=== PATIENT | male | born 1945 | race Caucasian/White ===

== ENCOUNTER → 2017-02-28 12:18 | Outpatient (CLI) | payer MEDICARE, OTHER ==
[2012-01-25 10:00] VITALS: BMI 29.2
== END | disposition home or self-care (01) ==
LOC: D.US 12:18
DX: I65.23 Occlusion and stenosis of bilateral carotid arteries (principal)

== ENCOUNTER → 2017-04-06 08:08 | Outpatient (CLI) | payer MEDICARE, OTHER ==
[2012-01-25 10:00] VITALS: BMI 29.2
--- NOTE | ~2017-04-06 | EC ---
PATIENT:ROBIN GOMEZ DATE OF SERVICE: 04/06/17 SEX: M MEDICAL RECORD: [id number] DATE OF : 45 LOCATION:[facility] AGE OF PATIENT: 71 ADMISSION DATE: 04/06/17 REFERRING PHYSICIAN: INTERPRETING PHYSICIAN: ULICES MAN MD ECHOCARDIOGRAM REPORT ECHO CHARGES 4 ECHO COMPLETE CLINICAL DIAGNOSIS: SOB/CP ECHOCARDIOGRAPHIC MEASUREMENTS (adult normal given) AC root (d.<3.7cm) 3.5 cm LV Septum d (<1.2 cm> 1.8 cm Valve Excursion 1.4 cm LV Septum (systole) 2.4 cm Left Atria (s.<4.0cm> 2.8 cm LVPW d(<1.2cm) 1.2 cm RV (d.<2.3cm) 2.5 cm LVPW (sytole) 2.1 cm LV diastole(<5.6CM) 4.5 cm MV E-F(>70mm/sec) cm LV systole 2.7 cm LVOT Diameter 1.8 cm MV exc.(>10mm) cm Est.ejection fraction (50-75%) % Pericardial Effusion N DOPPLER: LVIT cm/sec A 74.0 cm/sec E 97.0 cm/sec LA cm/sec RVSP 22.0 mmHg LVOT 82.0 cm/sec AOP1/2T m/s Asc. Ao 155 cm/sec RVOT 55.0 cm/sec RA cm/sec PA 84.0 cm/sec AV Gradient Peak 9.6 mmHg AV Mean 5.1 mmHg AV Area 1.4 cm MV Gradient Peak 4.0 mmHg MV Mean 1.8 mmHg MV Area cm COMMENTS: Director Sales And Trade Marketing: Trisha SANDRAOE Vp Celebrity Services: Moy Man TAPE# PACS DATE OF SERVICE: 04/06/2017 PROCEDURE: Transthoracic echocardiogram. FINDINGS: 1. The left ventricle has moderate concentric left ventricular hypertrophy. The overall ejection fraction is 55% to 60%. The inflow characteristics are normal. There is no obvious regional wall motion abnormalities. 2. The mitral valve is structurally normal. There is no appreciated mitral regurgitation. ECHOCARDIOGRAM REPORT [id number] ROBIN GOMEZ 3. The left atrium is normal size, normal function. 4. The right ventricle is normal size, normal function. 5. The right atrium is grossly normal. 6. Aortic valve trileaflet structure with normal function. 7. There is no pericardial effusion. 8. No pleural effusion. 9. The right ventricular systolic pressures are normal. CONCLUSIONS: The patient has evidence of left ventricular hypertrophy, otherwise normal echocardiogram. TRANSINT:[id number] Voice Confirmation ID: [id number] DOCUMENT ID: [id number] ULICES MAN MD at 1522 CC: [id number] DICTATION DATE: 04/07/17 0802 PATIENT TRANSITION SPECIALIST: 04/07/17 1040 DEP CLI 04/06/17 [facility] [address] [place] [address]
== END | disposition home or self-care (01) ==
LOC: D.ECHO 08:08
DX: R06.02 Shortness of breath (principal); R07.9 Chest pain, unspecified

== ENCOUNTER → 2017-08-25 15:54 | Outpatient (CLI) | payer MEDICARE, OTHER ==
[2012-01-25 10:00] VITALS: BMI 29.2
[2017-08-25 17:11] LABS: LDL-HDL RATIO 1.3 ratio (1.5-3.5)
== END | disposition home or self-care (01) ==
LOC: D.LABREF 15:54
PROVIDERS: Internal Medicine Cardiovascular Disease
DX: E78.5 Hyperlipidemia, unspecified (principal)

== ENCOUNTER → 2017-09-26 08:23 | Outpatient (CLI) | payer MEDICARE, OTHER ==
[2012-01-25 10:00] VITALS: BMI 29.2
--- NOTE | ~2017-09-26 | EC ---
PATIENT:ROBIN GOMEZ DATE OF SERVICE: 09/26/17 SEX: M MEDICAL RECORD: [id number] DATE OF : 45 [facility] AGE OF PATIENT: 72 ADMISSION DATE: 09/26/17 REFERRING PHYSICIAN: INTERPRETING PHYSICIAN: ULICES MAN MD ECHOCARDIOGRAM REPORT ECHO CHARGES 4 ECHO COMPLETE Date: 09/26 CLINICAL DIAGNOSIS: HTN/CAD ECHOCARDIOGRAPHIC MEASUREMENTS (adult normal given) AC root (d.<3.7cm) 3.6 cm LV Septum d (<1.2 cm> 1.2 cm Valve Excursion 1.5 cm LV Septum (systole) 1.9 cm Left Atria (s.<4.0cm> 2.6 cm LVPW d(<1.2cm) 1.2 cm RV (d.<2.3cm) 2.5 cm LVPW (sytole) 1.9 cm LV diastole(<5.6CM) 6.4 cm MV E-F(>70mm/sec) cm LV systole 4.6 cm LVOT Diameter 1.8 cm MV exc.(>10mm) cm Est.ejection fraction (50-75%) % DOPPLER: LVIT cm/sec A 62.0 cm/sec E 86.0 cm/sec LA cm/sec RVSP 19.3 mmHg LVOT 90.0 cm/sec AOP1/2T m/s Asc. Ao 149 cm/sec RVOT 56.0 cm/sec RA cm/sec PA 78.0 cm/sec AV Gradient Peak 8.9 mmHg AV Mean 5.4 mmHg AV Area 1.5 cm MV Gradient Peak 3.8 mmHg MV Mean 1.6 mmHg MV Area cm COMMENTS: Insurance Account Specialist: 1 JEFFY SANDRAOE Speech Language Pathologist Prn: 4 Dr. Man TAPE# PACS Pericardial Effusion N DATE OF SERVICE: FINDINGS: 1. Left ventricle has evidence of left ventricular hypertrophy. Inflow characteristics are normal; however, the ejection fraction is 55%. There is evidence of mild left ventricular enlargement. 2. The left atrium appears to be normal size, shape, structure and function. 3. The aortic valve is normal. 4. The mitral valve has trace mitral regurgitation. 5. The tricuspid valve has trace tricuspid regurgitation. ECHOCARDIOGRAM REPORT [id number] ROBIN GOMEZ 6. The right ventricle is normal. 7. The right atrium is normal. CONCLUSION: The patient has evidence of hypertensive heart disease with preserved left ventricular systolic function. TRANSINT:[id number] Voice Confirmation ID: [id number] DOCUMENT ID: [id number] ULICES MAN MD at 1127 CC: [id number] DICTATION DATE: 09/28/17922 FILM COLOR TESTER: 09/28/17 1132 DEP CLI 09/26/17 [place] [id number] [place] [address]
== END | disposition home or self-care (01) ==
LOC: D.ECHO 08:23
DX: E78.5 Hyperlipidemia, unspecified (principal); I65.23 Occlusion and stenosis of bilateral carotid arteries; I10 Essential (primary) hypertension; I25.10 Atherosclerotic heart disease of native coronary artery without angina pectoris

== ENCOUNTER → 2018-02-20 17:53 | Outpatient (CLI) | payer MEDICARE, OTHER ==
[2012-01-25 10:00] VITALS: BMI 29.2
[2018-02-20 18:36] LABS: LDL-HDL RATIO 1.3 ratio (1.5-3.5)
== END | disposition home or self-care (01) ==
LOC: D.LABREF 17:53
PROVIDERS: Internal Medicine Interventional Cardiology
DX: E78.5 Hyperlipidemia, unspecified (principal)

== ENCOUNTER → 2018-05-11 12:12 | Outpatient (CLI) | payer MEDICARE, OTHER ==
[2012-01-25 10:00] VITALS: BMI 29.2
== END | disposition home or self-care (01) ==
LOC: D.US 12:12
PROVIDERS: ATTEND Internal Medicine Cardiovascular Disease
DX: I65.23 Occlusion and stenosis of bilateral carotid arteries (principal)

== ENCOUNTER → 2018-11-14 11:01 | Outpatient (CLI) | payer MEDICARE, OTHER ==
[2012-01-25 10:00] VITALS: BMI 29.2
--- NOTE | 2018-11-16 15:51 | EC ---
PATIENT:ROBIN GOMEZ DATE OF SERVICE: 11/14/18 SEX: M MEDICAL RECORD: [id number] DATE OF : 45 [facility]GE OF PATIENT: 73 ADMISSION DATE: 11/14/18 REFERRING PHYSICIAN: INTERPRETING PHYSICIAN: TOMI ANGUIANO MD ECHOCARDIOGRAM REPORT ECHO CHARGES 4 ECHO COMPLETE Date: 11/14/18 CLINICAL DIAGNOSIS: H/O HTN/CVA/CAD ECHOCARDIOGRAPHIC MEASUREMENTS (adult normal given) AC root (d.<3.7cm) 3.5 cm LV Septum d (<1.2 cm> 1.2 cm Valve Excursion 1.4 cm LV Septum (systole) 14.7 cm Left Atria (s.<4.0cm> 2.6 cm LVPW d(<1.2cm) 1.1 cm RV (d.<2.3cm) 3.0 cm LVPW (sytole) 1.6 cm LV diastole(<5.6CM) 6.2 cm MV E-F(>70mm/sec) cm LV systole 4.3 cm LVOT Diameter 1.9 cm MV exc.(>10mm) cm Est.ejection fraction (50-75%) % DOPPLER: LVIT cm/sec A 82.0 cm/sec E 68.0 cm/sec LA cm/sec RVSP 20.0 mmHg LVOT 105 cm/sec AOP1/2T m/s Asc. Ao 177 cm/sec RVOT 59.0 cm/sec RA cm/sec PA 78.0 cm/sec AV Gradient Peak 13.0 mmHg AV Mean 5.6 mmHg AV Area 2.0 cm MV Gradient Peak 3.6 mmHg MV Mean 1.3 mmHg MV Area cm COMMENTS: OP - HC Fisheries Biologist: 1 JEFFY YENNY Trumpet Teacher: 3 Dr. Miller TAPE# PACS Pericardial Effusion N DATE OF SERVICE: Adequate 2D, color flow, spectral Doppler, and M-Mode Borderline LVH. LV internal dimension is normal. Wall motion is normal. EF is greater than or equal 55%. Aortic valve is tricuspid. No evidence of stenosis by Doppler interrogation. Left atrium is normal at 3.6 cm. Mitral valve shows no prolapse. Trace MR. Right-sided chambers grossly normal. Trace TR. TRANSINT:[id number] Voice Confirmation ID: [id number] DOCUMENT ID: [id number] ECHOCARDIOGRAM REPORT [id number] ROBIN GOMEZ,TOMI Cedeno MD at 1551 CC: [id number] DICTATION DATE: 11/15/[address] WORKER: 11/15/181913 DEP CLI 11/14/18 [place] [id number] [place] [id number]
== END | disposition home or self-care (01) ==
LOC: D.HCCARDIO 11:00
PROVIDERS: ATTEND Internal Medicine Interventional Cardiology
DX: I25.10 Atherosclerotic heart disease of native coronary artery without angina pectoris (principal)

== ENCOUNTER 2019-03-21 06:07 | Day surgery (SDC) | payer MEDICARE, OTHER ==
[2019-03-20 10:09] LABS: HEMOGLOBIN 15.5 g/dL (13.5-17.5); MCH 33.3 pg (26.0-34.0); MCHC 33.7 g/dL (31.0-37.0); MCV 98.9 fL (80.0-100.0); MEAN PLATELET VOLUME 10.7 fL (7.4-10.4); RBC 4.65 10x6/uL (4.20-6.10); WBC 6.9 10x3/uL (4.8-10.8)
[2019-03-20 10:18] LABS: CALC OSMOLALITY 276 mosm/kg (275-300); CALCIUM 8.7 mg/dL (8.5-10.1); CARBON DIOXIDE 28.8 mmol/L (21.0-32.0); CHLORIDE - SERUM 100 mmol/L (98-107); GLUCOSE 191 mg/dL (74-106); SODIUM 137 mmol/L (136-145); UREA NITROGEN 8 mg/dL (7-18); eGFR NON AFRICAN AMERICAN 78 mL/min (90-120)
[~2019-03-21] VITALS: Ht 160 cm; Wt 65.8 kg
--- NOTE | ~2019-03-21 | OP ---
PATIENT NAME: ROBIN GOMEZ MEDICAL RECORD: [id number] :45 LOCATION:[facility] ADMISSION DATE: SURGEON: MARY CORTÉS MD DATE OF OPERATION: 03/21/2019 PREOPERATIVE DIAGNOSIS: Anal mass. POSTOPERATIVE DIAGNOSES: 1. Anal mass with posterior lying mature anal fissure. 2. Anterior anal sinus, not a fistula. PROCEDURES: 1. Transanal excision of anal mass. 2. Lateral internal sphincterotomy. 3. Excision of anal sinus. SURGEON: Mary Cortés MD NEGOTIATOR SALES: None. BLOOD LOSS: Minimal. ANESTHESIA: General. COMPLICATIONS: None. The risks, possible complications and alternatives to the procedure were explained to the patient. He elects to proceed. Discussion specifically included, but was not limited to, bleeding requiring emergency reoperation, infection, sphincteric injury anal stenosis. OPERATIVE COURSE: The patient was conveyed the operating room electively on 03/21/2019. General anesthesia was induced by the anesthesia staff. The patient was placed in the lithotomy position. The anus and perianal areas were sterilely prepped and draped. I inserted U-shaped anal retractors. The anus was examined. At 6 o'clock, a polypoid mass was noted. I grasped this with forceps and excised it with electrocautery. The excision site was closed with multiple interrupted horizontal mattress 3-0 Vicryl sutures. This was at the cephalad portion of the anus. The patient had a mature anal fissure at 6 o'clock. I chose to perform a lateral internal sphincterotomy due to this fissure. At the 3 o'clock position, an incision was accomplished on the anal mucosa. I was able to identify the external anal sphincter as well as the internal anal sphincter. I divided about half of the internal anal sphincter with a 15 blade knife. I then closed the anal mucosa with a running locking 3-0 Vicryl suture. I extended this out onto the anoderm and tied. Further examination of the anus revealed hairs coming out of anal sinus at 12 o'clock. I initially thought that this was an anal fistula. I utilized lacrimal duct probes and was unable to find a fistula. Over the lacrimal duct probe, after removing the hairs, I opened up the sinus. Further examination of the anus revealed a large set of internal hemorrhoids at the 11 o'clock position and I suture ligated these. I packed the anus with Gelfoam. The perianal tissues were infiltrated with OPERATIVE REPORT [id number] ROBIN GOMEZ as well as with Solu-Medrol. I then applied Americaine to the external hemorrhoids. The patient was then extubated and conveyed to post-anesthesia care unit where he was in stable condition. He will be dismissed home on Valium, [place] as well as Colace. I will see him in the office in 2-3 weeks. TRANSINT:[id number] Voice Confirmation ID: [id number] DOCUMENT ID: [id number] MARY CORTÉS MD CC: LEWIS WARE DO and JORDEN LIANG MD [id number] DICTATION DATE: 03/21/19 1003 MECHANICAL TECH: 03/21/19 1301 [facility] 03/21/[address] [address]
[~2019-03-21 06:07] MED LIST: ASPIRIN81 MG PO; EZETIMIBE-SIMVASTATI PO; GLUCOPHAGE1000 MG PO; JANUVIA100 MG PO; JARDIANCE25 MG PO; LOTENSIN 10 MG10 MG PO; PLAVIX75 MG PO
[2019-03-21 06:39] VITALS: BP 116/64; Ht 160 cm; Wt 65.8 kg
--- NOTE | 2019-03-21 09:42 | NUR ---
0923 RECEIVED PATIENT WITH OPA IN PLACE
--- NOTE | 2019-03-21 09:47 | NUR ---
0945 PATIENT AWAKE, OPA DISCONTINUED
--- NOTE | 2019-03-21 10:11 | NUR ---
1002-REC'D FROM RR. AWAKE AND ALERT,VSS,DENIES TAYLOR. IV PATENT TO RIGHT WRIST AT KVO. ASSISTED PT WITH HEARING AIDS, HANDED PT DENTURES. REVIEWED DISCHARGE CRITERIA. VERBALIZED UNDERSTANDING.
--- NOTE | 2019-03-21 11:03 | NUR ---
1030-FULL LIQUID TRAY TO ROOM. VSS. DENIES PAIN. CL IN EASY REACH.
--- NOTE | 2019-03-21 11:04 | NUR ---
1050-TOLERATED TRAY. REMOVED IV FROM RIGHT HAND WITH CATH INTACT. DISPOSED INTO SHARPS,COVERED SITE WITH GUAZE,SECURED WITH TAPE.
--- NOTE | 2019-03-21 11:20 | NUR ---
1114-DISCHARGE CRITERIA MET. ABLE TO AMBLUATE WITH SLOW STEADY GAIT AND URINATE WITHOUT COMPLICATIONS. REVIEWED POST OPERATIVE INSTRUCTIONS. VERBALIZED UNDERSTANDING. AWAITING ON TO ARRIVE TO DRIVE HOME
--- NOTE | 2019-03-21 11:21 | NUR ---
1117-ESCORTED OUT VIA W/C WITH SPOUSE AWAITING TO DRIVE HOME.DISCAHRGE PAPERWORK IN HAND
== END 2019-03-21 11:17 | disposition home or self-care (01) ==
LOC: D.OPS 06:07 → D.PAN 08:00 → D.OPS 08:00
PROVIDERS: Anesthesiology; ATTEND Surgery
DX: K62.0 Anal polyp (principal); K60.2 Anal fissure, unspecified; E78.5 Hyperlipidemia, unspecified; F17.200 Nicotine dependence, unspecified, uncomplicated; I10 Essential (primary) hypertension; E11.9 Type 2 diabetes mellitus without complications; I65.29 Occlusion and stenosis of unspecified carotid artery; Z79.84 Long term (current) use of oral hypoglycemic drugs

== ENCOUNTER → 2019-06-11 10:17 | Outpatient (CLI) | payer MEDICARE, OTHER ==
[2019-03-21 06:39] VITALS: BMI 25.7
== END | disposition home or self-care (01) ==
LOC: D.US 05-11 11:00
PROVIDERS: ATTEND Internal Medicine Cardiovascular Disease
DX: I65.29 Occlusion and stenosis of unspecified carotid artery (principal)